=== PATIENT | female | born 1960 | race Caucasian/White ===

== ENCOUNTER 2023-10-29 14:48 | Emergency (ER) | payer OTHER, SELFPAY ==
[2023-10-29 14:52] VITALS: BP 169/93
[2023-10-29 15:02] LABS: Glucose - Point of Care 594 mg/dl (70-99)
--- NOTE | 2023-10-29 15:36 | ED.GENMED ---
History of Present Illness
General
Chief Complaint: Fainting/Passed Out
Source: patient
Exam Limitations: none
Time Seen by Provider: 10/29/23 15:27
Travel History
Have you had any contact with someone who has COVID-19?: No
Do you have any symptoms of coronavirus? Fever > 100 degrees, chills, cough, shortness of breath, sore throat, loss of taste or smell, muscle aches, or headache?: No
History of Present Illness
History of Present Illness:
See MDM
Past History
Past History
ED Past Medical History: Asthma, CAD, COPD, HTN, Hypercholesterolemia, IDDM, [place] (6 months ago) and Other (Colitis, Kidney stones, TIA, right eye retinal issues)
ED Past Surgical History: Cardiac (Stents x 2) and Other (Patient had a paced left time in 2009)
Social History
Tobacco: Former smoker
Alcohol: None
Personal:
Living: with family
Employment: Employed
Family History
Family History: Other (no significant)
Phy Exam
Physical Exam
Physical Exam:
See MDM
Course
Orders/Labs/Results
Orders:
Orders
10/29/23 14:58
CT Head W/o Iv Contrast Urgent
Comment:
Reason For Exam: pain
Cervical Spine wo Contrast CT [CT Cervical Spine W/o Iv Contr] Urgent
Comment:
Reason For Exam: pain
10/29/23 15:35
Electrocardiogram (*1) Urgent
Reason for Study: Syncope
EKG- Treatment ONCE
0.9% Sodium Chloride 1000 ml [Nss] 1,000 ml IV BOLUS
10/29/23 16:42
CMP [Comprehensive Metabolic Panel] Urgent
Complete Blood Count/With Diff Urgent
Abnormal Lab Results
10/29/23 10/29/23
15:01 16:42
Hgb 11.9 L g/dL
(12.0-16.0)
Hct 35.2 L %
(37.0-47.0)
MPV 11.1 H fL
(7.4-10.4)
Sodium 129 L mmol/L
(135-145)
Potassium 5.2 H mmol/L
(3.5-5.1)
Chloride 95 L mmol/L
(98-107)
BUN 22 H mg/dl
(7-17)
Glucose 598 H* mg/dl
(70-99)
POC Glucose 594 H* mg/dl
(70-99)
10/29/23 16:42
10/29/23 16:42
Vital Signs
Initial and Last Documented VS:
Initial Vital Signs
Temp Pulse Resp BP Pulse Ox
98.5 F 101 16 169/93 98
10/29/23 14:52 10/29/23 14:52 10/29/23 14:52 10/29/23 14:52 10/29/23 14:52
Last Documented Vital Signs
Temp Pulse Resp BP Pulse Ox
98.5 F 77 12 125/68 94
10/29/23 14:52 10/29/23 17:15 10/29/23 17:15 10/29/23 17:00 10/29/23 17:15
MDM/Problems Addressed
Differential Diagnosis Includes:
HPI and MDM Narrative:
63-year-old female presenting with syncopal event. Patient has a history of diabetes and she states she was urinating all night last night. Her insulin pump supplies were delayed. She has been giving herself insulin based on fingersticks. She
was walking to her front door to get the package that included her new insulin supplies and she passed out and hit her head. She complains of head and neck pain
On exam, she is dry appearing. Will give IV fluids. Patient's blood sugar found to be elevated. Will obtain basic blood work to rule out any evidence of DKA. Patient states her insulin pump will start to manage her elevated blood sugar by giving
boluses
Physical exam
General: Well appearing and non-toxic
HEENT: protecting airway. Dry mucous membranes
Neck: Mild posterior neck pain. Supple
CV: No evidence of cyanosis. Mild tachycardia
Resp: No accessory muscle use
Abd: Non-distended
Extremities: No deformities
Neuro: alert
Psych: Normal affect
Skin: Intact
Problems Addressed including Acute and Chronic Conditions affecting care:
1. Syncope
Acuity: acute
Prognosis: stable
Details: Likely orthostatic given her hypovolemic state. Will give IV fluids. Will obtain EKG
2. Head and neck
Acuity: acute
Prognosis: stable
Details: Will obtain CT given trauma
3. [Hyperglycemia
Acuity: acute
Prognosis: unstable
Details: patient replaced her insulin pump today
4. [ ]
Acuity: acute
Prognosis: stable
Details:
5. [ ]
Acuity:
Prognosis:
Details:
Updates
6:40 PM after multiple reassessments, patient states she is feeling better. Her insulin pump is now reading blood sugar 351. She feels comfortable going. Discussed increased fluid intake and follow-up with her doctor
Differential Diagnosis (but not limited to): Orthostatic hypotension, neck strain, DKA
Testing considered: Urinalysis
Drug therapy (if applicable): OTC meds, please see d/c instruction regarding Rx drugs
Amount and/or Complexity of Data Reviewed
Clinical info obtained from: Patient
External data reviewed: N/A
Labs I independently reviewed (but not limited to): Fingerstick 594
Radiology: The CT scan was personally and independently reviewed. In addition, official CT report reviewed.
Pulse Ox: not hypoxic
EKG independently reviewed: Sinus rhythm, normal axis, no STEMI
Mate First: N/A
Critical Care: N/A
Risk of Complication:
Social Determinants of health: Good social support
Discussed with other providers: N/A
Escalation of Care includes Admit/Obs: After being observed in the Emergency Department, pt stable for discharge.
Occasional wrong word or 'sound a like' substitutions may have occurred due to the inherent limitations of voice recognition software. Read the chart carefully and recognize, using context, where substitutions have occurred.
*Critical Care Note
Total Time (30-74mins, 75-104mins- exclusive of procedures): Not Applicable
ED Attending Note
-
Portions of this chart may have been created with voice recognition software.� Occasional wrong word or��sound alike� substitutions may have occurred due to the inherent limitations of voice recognition software.
Discharge Plan
Departure
Patient Disposition: Home (Routine Discharge)
Date of Disposition: 10/29/23
Time of Disposition: 18:41
Patient with high blood pressure during this ER visit?: No
Discharge Problem:
Head injury, Hyperglycemia
Instructions: High Blood Sugar, Adult (DC)
Prescriptions:
No Action
cetirizine 10 MG tablet
10 mg PO DAILY
venlafaxine [Effexor XR] 150 MG capsule,extended release 24hr
150 mg PO DAILY
pantoprazole 40 MG tablet,delayed release (DR/EC)
40 mg PO DAILY Qty: 30 2RF
aspirin 81 MG tablet,chewable
81 mg PO DAILY 0RF
rosuvastatin 20 MG tablet
20 mg PO QPM Qty: 30 2RF
losartan 50 MG tablet
50 mg PO DAILY
metoprolol succinate 25 mg Tablet Extended Release 24 Hr
25 mg PO DAILY
ezetimibe [Zetia] 10 mg Tablet
10 mg PO DAILY
albuterol sulfate 90 mcg/actuation Hfa Aerosol Inhaler
2 puff INHALATION QID PRN (Reason: SOB)
Humalog U-100 Insulin 100 unit/mL Cartridge
0 unit SC PRN PRN (Reason: based off glucose level)
Rx Instructions:
Patient has insulin pump
Tylenol
1,000 mg PO Q6HPRN PRN (Reason: Pain)
hydrocodone-acetaminophen 5-325 mg tablet
1 tab PO Q8H PRN (Reason: Pain) Qty: 10 0RF
Referrals:
Carrie Mcgrath DO [Family Provider] -
Activity Restrictions/Additional Instructions:
Please return for any worsening symptoms.
You may return at any time if you have further concerns.
Please drink plenty of water over the next few days.
Please follow up with your doctor at the first available appointment, preferably this week.
Thank you for choosing [facility].
Interventions
Interventions:
*Risk Screen - Suicide Last Done: 10/29/23 14:52
*General Assessment Last Done: 10/29/23 14:52
*Neglect/Abuse Screening Last Done: 10/29/23 14:52
ED- Fall Risk Assessment Last Done: 10/29/23 16:34
*ED COVID-19 Vaccine History Last Done: 10/29/23 14:52
ED- Cardiac Assessment Last Done: 10/29/23 16:35
ED- Neurological Assessment Last Done: 10/29/23 16:35
Discharge Date and Time
Print Language: PANAMANIAN
[2023-10-29 16:32] VITALS: BMI 30.2
[2023-10-29 16:38] VITALS: BP 119/66
[2023-10-29] MEDS: NSS 1000 IV (16:51)
[2023-10-29 16:58] LABS: % Immature Granulocytes 0.4 % (0-0.5); % Lymphocytes 28.2 % (20.5-51.1); % Monocytes 3.9 % (1.7-9.3); % Neutrophils 66.5 % (42.2-75.2); Absolute Basophils 0.1 10^3/uL (0-0.2); Absolute Lymphocytes 2.3 10^3/uL (1.2-3.4); Absolute Monocytes 0.3 10^3/uL (0.1-0.6); Absolute Neutrophils 5.3 10^3/uL (1.4-6.5); Hematocrit 35.2 % (37.0-47.0); Hemoglobin 11.9 g/dL (12.0-16.0); Mean Corp Hgb Conc. 33.8 g/dL (33.0-37.0); Mean Corpuscular Hgb 27.8 pg (27.0-31.0); Mean Corpuscular Volume 82.2 fL (81.0-99.0); Mean Platelet Volume 11.1 fL (7.4-10.4); Nucleated Red Blood Cells % 0 %; Platelet Count 281 10^3/uL (130-400); Red Blood Cell Count 4.28 10^6/uL (4.20-5.40); Red Cell Dist. Width 13.3 % (11.5-14.5)
[2023-10-29 17:00] VITALS: BP 125/68
[2023-10-29 17:12] LABS: ALT (SGPT) 18 U/L (0-35); AST (SGOT) 21 U/L (14-36); Albumin 3.7 g/dl (3.5-5.0); Alkaline Phosphatase 123 U/L (38-126); Blood Urea Nitrogen 22 mg/dl (7-17); Calcium 8.9 mg/dl (8.4-10.2); Carbon Dioxide 27 mmol/L (22-30); Chloride 95 mmol/L (98-107); Estimated Creatinine Clearance 66 ml/min; Glucose 598 mg/dl (70-99); Potassium 5.2 mmol/L (3.5-5.1); Sodium 129 mmol/L (135-145); Total Bilirubin 0.5 mg/dl (0.2-1.3); Total Protein 6.6 g/dl (6.3-8.2); eGFR > 60.00
[2023-10-29 18:00] VITALS: BP 124/59
[2023-10-29 18:51] VITALS: BP 127/68
[2023-10-29 19:02] VITALS: BP 127/68
== END 2023-10-29 19:03 | disposition home or self-care (01) ==
LOC: EMR 14:48
PROVIDERS: Emergency Medicine; EMERGENCY PHYSICIAN Student in an Organized Health Care Education/Training Program; FAMILY PHYSICIAN Student in an Organized Health Care Education/Training Program
DX: R55 Syncope and collapse (principal); E11.65 Type 2 diabetes mellitus with hyperglycemia; S09.90XA Unspecified injury of head, initial encounter; M54.2 Cervicalgia; W18.30XA Fall on same level, unspecified, initial encounter; Y93.01 Activity, walking, marching and hiking; Y92.009 Unspecified place in unspecified non-institutional (private) residence as the place of occurrence of the external cause; I10 Essential (primary) hypertension; E78.00 Pure hypercholesterolemia, unspecified; I25.10 Atherosclerotic heart disease of native coronary artery without angina pectoris; K52.9 Noninfective gastroenteritis and colitis, unspecified; J45.909 Unspecified asthma, uncomplicated; I25.2 Old myocardial infarction; Z96.41 Presence of insulin pump (external) (internal); Z95.5 Presence of coronary angioplasty implant and graft; Z86.73 Personal history of transient ischemic attack (TIA), and cerebral infarction without residual deficits; Z87.891 Personal history of nicotine dependence; Z87.442 Personal history of urinary calculi; Z79.4 Long term (current) use of insulin; Z79.82 Long term (current) use of aspirin; Z88.8 Allergy status to other drugs, medicaments and biological substances; Z91.048 Other nonmedicinal substance allergy status
CPT/HCPCS: 99284; 96360; 70450; 72125; 80053; 82962; 85025; 93005

== ENCOUNTER → 2023-12-18 07:48 | Outpatient (REF) | payer OTHER, SELFPAY | LOC: RAD 07:48 | PROVIDERS: ATTENDING PHYSICIAN Surgery Vascular Surgery; FAMILY PHYSICIAN Student in an Organized Health Care Education/Training Program | DX: I73.9 Peripheral vascular disease, unspecified (principal) | CPT/HCPCS: 93922; 93925 ==

== ENCOUNTER 2024-01-16 10:14 | Emergency (ER) | payer OTHER, SELFPAY ==
[2024-01-16 10:16] VITALS: BP 178/96
--- NOTE | 2024-01-16 10:37 | ED.GENMED ---
History of Present Illness
<Shey Gunn PA-C - Last Filed: 01/16/24 18:43>
General
Chief Complaint: Musculo-Skeletal Complaint
Source: patient
Exam Limitations: none
Time Seen by Provider: 01/16/24 10:36
Nursing documentation reviewed up to this point in time: agreed with
History of Present Illness
History of Present Illness:
Patient is a 63-year-old female presenting to the emergency department for evaluation of atraumatic right ankle pain and swelling. Patient states that she initially noticed pain in her right ankle on Monday afternoon and has been intermittently
icing and elevating since onset. Pain is located in right heel and right medial ankle. Patient does notice redness and warmth of her right ankle, as well. She states that pain was more severe this morning and came to the emergency department for
further evaluation. Patient denies any known inciting injury or fall. Patient denies any fever, chills, nausea/vomiting. No recent bug bites or rashes.
Patient did states she had a fall few weeks ago and saw an orthopedic use noted that she had bone spurs in her heel, tendinitis of her Achilles, and plantar fasciitis.
Past History
<Shey Gunn PA-C - Last Filed: 01/16/24 18:43>
Past History
ED Past Medical History: Asthma, CAD, COPD, HTN, Hypercholesterolemia, IDDM, [place] (6 months ago) and Other (Colitis, Kidney stones, TIA, right eye retinal issues)
ED Past Surgical History: Cardiac (Stents x 2) and Other (Patient had a paced left time in 2009)
Social History
Tobacco: Former smoker
Alcohol: None
Personal:
Living: with family
Employment: Employed
Family History
Family History: Other (no significant)
Review of Systems
<Shey Gunn PA-C - Last Filed: 01/16/24 18:43>
Review of Systems
Allergies reviewed?: Yes
All Other Systems: ROS reviewed and negative except as documented in HPI and ROS
Phy Exam
<Shey Gunn PA-C - Last Filed: 01/16/24 18:43>
Physical Exam
Physical Exam:
Vitals: Hypertensive, otherwise vital signs stable. Afebrile
General: Patient is well appearing, no acute distress. Nontoxic-appearing
Skin: Warm and dry, no rashes or lesions
Head: Normocephalic, atraumatic
Eyes: Sclera nonicteric. EOMs intact. No nystagmus.
Throat: Protecting airway
Neck: Normal ROM, no cervical spine tenderness, no meningismus
Cardiac: Regular rate and rhythm, no murmurs.
Pulm: Normal respiratory effort, no wheezes, rales, rhonchi heard on exam.
Abdomen: No abdominal tenderness.
Extremities: Mild diffuse edema of right ankle with point tenderness to insertion of right Achilles tendon. Negative Loza test. Achilles intact. Some tenderness noted to both right calcaneus and right plantar foot. No overlying erythema or
warmth of right ankle. No red streaking or signs of cellulitis. No bony tenderness of right ankle or right foot.
Neuro: AAOx3. CN II-XII intact. No focal neurologic deficits.
Psychiatric: Normal affect.
Course
<Shey Gunn PA-C - Last Filed: 01/16/24 18:43>
Orders/Labs/Results
Orders:
Orders
01/16/24 10:22
CR Ankle - Right Min 3 Views * Urgent
Comment:
Reason For Exam: pain and swelling
01/16/24 10:56
Acetaminophen [Tylenol] 650 mg PO NOW STA
01/16/24 11:47
Ortho Boot Right- Treatment ONCE
Short or tall?: Short
Vital Signs
Initial and Last Documented VS:
Initial Vital Signs
Temp Pulse Resp BP Pulse Ox
98.6 F 105 18 178/96 96
01/16/24 10:16 01/16/24 10:16 01/16/24 10:16 01/16/24 10:16 01/16/24 10:16
Last Documented Vital Signs
Temp Pulse Resp BP Pulse Ox
98.6 F 105 18 178/96 96
01/16/24 10:16 01/16/24 10:16 01/16/24 10:16 01/16/24 10:16 01/16/24 10:16
<Gunner Elder DO - Last Filed: 01/16/24 11:50>
Orders/Labs/Results
Orders:
Orders
01/16/24 10:22
CR Ankle - Right Min 3 Views * Urgent
Comment:
Reason For Exam: pain and swelling
01/16/24 10:56
Acetaminophen [Tylenol] 650 mg PO NOW STA
01/16/24 11:47
Ortho Boot Right- Treatment ONCE
Short or tall?: Short
Vital Signs
Initial and Last Documented VS:
Initial Vital Signs
Temp Pulse Resp BP Pulse Ox
98.6 F 105 18 178/96 96
01/16/24 10:16 01/16/24 10:16 01/16/24 10:16 01/16/24 10:16 01/16/24 10:16
Last Documented Vital Signs
Temp Pulse Resp BP Pulse Ox
98.6 F 105 18 178/96 96
01/16/24 10:16 01/16/24 10:16 01/16/24 10:16 01/16/24 10:16 01/16/24 10:16
<Shey Gunn PA-C - Last Filed: 01/16/24 18:43>
MDM/Problems Addressed
Differential Diagnosis Includes:
Not limited to: Ankle sprain, ankle fracture, tendinitis, bursitis, plantar fasciitis, Achilles tendon rupture
MDM/Problems Addressed:
Patient is a 63-year-old female presenting with atraumatic right ankle pain and swelling. No fever, chills, rashes. No known trauma. Patient is stable vital signs, she is afebrile. Physical exam as above. Patient is well-appearing,
nontoxic-appearing. She does have diffuse edema of the right ankle localized more to the medial aspect and calcaneus. Tenderness to right calcaneus near insertion of Achilles. There is no overlying erythema or warmth of right ankle. No red
streaking or indications of infection. Patient has acceptable range of motion right ankle. X-ray obtained in triage show bone spurs to the calcaneus and findings consistent with Achilles enthesopathy.
Do not suspect infectious process. Suspect symptoms related to Achilles tendinitis and possible plantar fasciitis. Will give Tylenol and ice in ER. Will place in Ortho boot and have patient follow-up with orthopedic, Dr. Sargent . Will send a few
tablets of tramadol to use as needed for severe pain. Discussed may cause drowsiness. Recommended ice, elevation. Patient has cane at home to use. Patient comfortable with plan.
Chronic conditions affecting care:
Hypertension
Acute Exacerbation and/or Progression of Chronic Illness:
Acutely hypertensive
<Shey Gunn PA-C - Last Filed: 01/16/24 18:43>
*Radiology
Radiology exam reviewed: preliminary read by ED provider and radiology read reviewed
*Pulse Oximetry
Patient hypoxic: no
*EKG
Interpreted by ED Provider?: NA
*Meat Boner Interpretation
Rate: Meat Boner- N/A
*Critical Care Note
Total Time (30-74mins, 75-104mins- exclusive of procedures): Not Applicable
ED Attending Note
<Shey Gunn PA-C - Last Filed: 01/16/24 18:43>
-
Portions of this chart may have been created with voice recognition software.� Occasional wrong word or��sound alike� substitutions may have occurred due to the inherent limitations of voice recognition software.
<Gunner Elder, DO - Last Filed: 01/16/24 11:50>
ED Attending Note
Patient seen and examined by attending physician: Yes
I performed a history and physical exam of patient and discussed management with resident, I reviewed resident's note and agree with documented findings and plan of care.: Yes
ED Attending Note:
I have reviewed and agree with history and treatment plan by Shey Gunn. My exam revealed right calcaneal tenderness. Normal pulses. Suspect Achilles tendinitis. Do not suspect infection. Treat with walker boot, follow-up with orthopedics.
Patient has seen orthopedics for this in the past.
Discharge Plan
Departure
Patient Disposition: Home (Routine Discharge)
Date of Disposition: 01/16/24
Time of Disposition: 11:48
Patient with high blood pressure during this ER visit?: Yes
Condition: Good
Covid-19: Not Applicable
Discharge Problem:
Tendonitis, Achilles, right, Plantar fasciitis, right
Instructions: Plantar fasciitis, Achilles Tendinopathy (DC), BLOOD PRESSURE
Prescriptions:
New
tramadol 50 mg tablet
50 mg PO Q6H PRN (Reason: Pain) Qty: 12 0RF
No Action
cetirizine 10 MG tablet
10 mg PO DAILY
venlafaxine [Effexor XR] 150 MG capsule,extended release 24hr
150 mg PO DAILY
pantoprazole 40 MG tablet,delayed release (DR/EC)
40 mg PO DAILY Qty: 30 2RF
aspirin 81 MG tablet,chewable
81 mg PO DAILY 0RF
rosuvastatin 20 MG tablet
20 mg PO QPM Qty: 30 2RF
losartan 50 MG tablet
50 mg PO DAILY
metoprolol succinate 25 mg Tablet Extended Release 24 Hr
25 mg PO DAILY
ezetimibe [Zetia] 10 mg Tablet
10 mg PO DAILY
albuterol sulfate 90 mcg/actuation Hfa Aerosol Inhaler
2 puff INHALATION QID PRN (Reason: SOB)
Humalog U-100 Insulin 100 unit/mL Cartridge
0 unit SC PRN PRN (Reason: based off glucose level)
Rx Instructions:
Patient has insulin pump
Tylenol
1,000 mg PO Q6HPRN PRN (Reason: Pain)
hydrocodone-acetaminophen 5-325 mg tablet
1 tab PO Q8H PRN (Reason: Pain) Qty: 10 0RF
Referrals:
Jose Disla, [Family Provider] -
Activity Restrictions/Additional Instructions:
RETURN TO THE EMERGENCY DEPARTMENT WITH ANY FEVERS, CHILLS, INTRACTABLE PAIN, WORSENING IN CURRENT SYMPTOMS, OR ANY OTHER CONCERNS
-It is likely that your symptoms are due to a tendinitis of your Achilles and possible plantar fasciitis. You should keep your right ankle elevated, apply ice. You can take Tylenol as needed for pain you can take tramadol every 6 hours as needed
for severe discomfort. This may cause drowsiness. You should not take prior to driving. Wear Ortho boot until you follow-up with orthopedics
-As discussed�you need to follow-up with orthopedics, Dr. Sargent for further evaluation/management. You may require further imaging.
Interventions
Interventions:
*Risk Screen - Suicide Last Done: 01/16/24 10:16
*Neglect/Abuse Screening Last Done: 01/16/24 10:16
ED- Fall Risk Assessment Last Done: 01/16/24 11:05
*ED COVID-19 Vaccine History Last Done: 01/16/24 10:16
*Nursing Disposition Last Done: 01/16/24 12:03
ED-Musculoskeletal Assessment Last Done: 01/16/24 11:05
Discharge Date and Time
Discharge Date/Time: 01/16/24 12:03
Print Language: PORTUGUESE
[2024-01-16 11:00] VITALS: BMI 35.5
[2024-01-16] MEDS: TYLENOL 650 MG PO (11:11)
== END 2024-01-16 12:03 | disposition home or self-care (01) ==
LOC: EMR 10:14
PROVIDERS: EMERGENCY PHYSICIAN Emergency Medicine; FAMILY PHYSICIAN Family Medicine
DX: M72.2 Plantar fascial fibromatosis (principal); M76.61 Achilles tendinitis, right leg; M25.571 Pain in right ankle and joints of right foot; R60.0 Localized edema; R26.2 Difficulty in walking, not elsewhere classified; M77.9 Enthesopathy, unspecified; I10 Essential (primary) hypertension; E11.9 Type 2 diabetes mellitus without complications; I25.10 Atherosclerotic heart disease of native coronary artery without angina pectoris; J45.909 Unspecified asthma, uncomplicated; E78.00 Pure hypercholesterolemia, unspecified; M10.9 Gout, unspecified; K52.9 Noninfective gastroenteritis and colitis, unspecified; I25.2 Old myocardial infarction; Z79.82 Long term (current) use of aspirin; Z79.4 Long term (current) use of insulin; Z95.5 Presence of coronary angioplasty implant and graft; Z96.41 Presence of insulin pump (external) (internal); Z85.828 Personal history of other malignant neoplasm of skin; Z87.442 Personal history of urinary calculi; Z87.891 Personal history of nicotine dependence; Z86.73 Personal history of transient ischemic attack (TIA), and cerebral infarction without residual deficits; Z88.8 Allergy status to other drugs, medicaments and biological substances; Z91.048 Other nonmedicinal substance allergy status
CPT/HCPCS: 99283; 29515; 73610

== ENCOUNTER 2024-01-24 11:41 | Emergency (ER) | payer OTHER, SELFPAY ==
[2024-01-24 11:44] VITALS: BP 129/82
--- NOTE | 2024-01-24 13:00 | ED.GENMED ---
History of Present Illness
General
Chief Complaint: Musculo-Skeletal Complaint
Source: patient
Exam Limitations: none
Time Seen by Provider: 01/24/24 12:41
Nursing documentation reviewed up to this point in time: agreed with
History of Present Illness
History of Present Illness:
63-year-old female with a past medical history of asthma, hypertension, hyperlipidemia, CAD, diabetes who presents to the emergency room for evaluation primarily of ankle pain but she is also complaining of chest pain and arm heaviness, shortness of
breath. Regarding her ankle issue: Patient was seen in this emergency room 01/16/2024 for evaluation of right ankle pain and swelling; there was no initial trauma and she was diagnosed with Achilles tendinitis/plantar fasciitis. She was placed in
orthopedic boot and referred to orthopedics as an outpatient. Patient reports that last night at around 9 PM she took the boot off to go to bed but had to go outside to help her neighbor with something and did not put the boot back on. She says
that she unfortunately was having pain walking without the boot and suffered an inversion injury of the right ankle while she was walking. She says that she had immediate worsening of her pain mainly in the medial ankle. She came back to the
emergency room to be assessed. She does note that she has been having some chest pain today�she says that this morning pain was worse and she started to have some pressure in her chest and some heaviness in her left arm. She says she started to
have some mild dizziness. She says that she is not sure whether this could be anxiety or pain related but she also was hoping to be evaluated for this. She says symptoms are relatively mild. She does have a known history of coronary artery
disease and stents.
Past History
Past History
ED Past Medical History: Asthma, CAD, COPD, HTN, Hypercholesterolemia, IDDM, [place] (6 months ago) and Other (Colitis, Kidney stones, TIA, right eye retinal issues)
ED Past Surgical History: Cardiac (Stents x 2) and Other (Patient had a paced left time in 2009)
Social History
Tobacco: Former smoker
Alcohol: None
Personal:
Living: with family
Employment: Employed
Family History
Family History: Other (no significant)
Review of Systems
Review of Systems
All Other Systems: ROS reviewed and negative except as documented in HPI and ROS
Constitutional: Denies fever or chills
Respiratory: Denies cough or trouble breathing
Cardiac: Reports chest pain
ABD/GI: Denies abdominal pain, nausea or vomiting
: Denies flank pain
Musculoskeletal: Reports joint pain and edema; Denies neck pain or back pain
Neurological: Denies dizzy or headache
Phy Exam
Physical Exam
Physical Exam:
General: Awake, alert, oriented x3; anxious but no acute distress
Head: Normocephalic, atraumatic
Eyes: Conjunctiva normal
Throat: Airway intact, handling secretions
Neck: Trachea midline, supple without meningismus
Lungs: Clear to auscultation bilaterally, no wheezing, rales, rhonchi
Heart: Regular rate and rhythm, no murmurs, gallops, or rubs
Neuro: Cranial nerves grossly intact, speech fluid, no motor or sensory deficit
Skin: no rash, no erythema or warmth of the skin in the legs
Extremities: Patient has swelling around the entire to the right ankle somewhat worse on the lateral aspect near the lateral malleolus and anterior to the lateral malleolus; she has tenderness along the lateral malleolus on the right as well as some
tenderness along the Achilles tendon but no tenderness of the medial malleolus or the midfoot or along the fifth metatarsal; her tenderness extends up to the posterior calf to about the midpoint of the calf and she has edema extending to the lower
part of the calf on the right; she has no tenderness of the upper calf, no tenderness of the knee and good range of motion of the knee; range of motion and ankle limited by pain; she does have a good palpable right DP pulse; rest of extremities are
atraumatic
Scores
Heart Failure Risk
Heart Failure Risk Score: Not Applicable
Heart Score for Chest Pain Patients
STEMI patient?: Not applicable
Withdrawal Assessment of Alcohol
Withdrawal Assessment Completed?: Not applicable
Course
Orders/Labs/Results
Orders:
Orders
01/24/24 11:46
Ankle, Right 3 view CR [CR Ankle - Right Min 3 Views *] Urgent
Comment:
Reason For Exam: pain, increased swelling
01/24/24 12:53
Electrocardiogram (*1) Urgent
Reason for Study: Vertigo / Dizzy
EKG- Treatment ONCE
CR Leg Tibia/fibula Right 2 Vw Urgent
Comment:
Reason For Exam: right lower leg pain s/p ankle inversion injury
01/24/24 12:56
Ketorolac [Toradol] 15 mg IV NOW STA
01/24/24 13:22
US Periph Venous LOWER Ext RT Urgent
Comment:
Reason For Exam: RLE pain and swelling
01/24/24 13:36
Complete Blood Count/With Diff Urgent
Comprehensive Metabolic Panel Urgent
Troponin I Urgent
01/24/24 15:37
0.9% Sodium Chloride 500 ml [Nss] 500 ml IV BOLUS
Abnormal Lab Results
01/24/24
13:36
WBC 12.4 H 10^3/uL
(4.8-10.8)
Hgb 11.8 L g/dL
(12.0-16.0)
Hct 35.5 L %
(37.0-47.0)
MPV 10.5 H fL
(7.4-10.4)
Absolute Neuts (auto) 8.3 H 10^3/uL
(1.4-6.5)
Absolute Lymphs (auto) 3.5 H 10^3/uL
(1.2-3.4)
BUN 20 H mg/dl
(7-17)
Creatinine 1.1 H mg/dL
(0.6-1.0)
Glucose 235 H mg/dl
(70-99)
01/24/24 13:36
01/24/24 13:36
Vital Signs
Initial and Last Documented VS:
Initial Vital Signs
Temp Pulse Resp BP Pulse Ox
37.1 C 109 20 129/82 96
01/24/24 11:44 01/24/24 11:44 01/24/24 11:44 01/24/24 11:44 01/24/24 11:44
Last Documented Vital Signs
Temp Pulse Resp BP Pulse Ox
36.7 C 77 20 125/68 98
01/24/24 15:29 01/24/24 15:29 01/24/24 11:44 01/24/24 15:29 01/24/24 15:29
MDM/Problems Addressed
Differential Diagnosis Includes:
Ankle pain: Ankle sprain, ankle fracture, DVT
Chest pain: ACS, dysrhythmia, anxiety; PE is a consideration but considered much less likely
MDM/Problems Addressed:
63-year-old female with history as documented presents for evaluation of ankle pain; she has also been having some chest pain and dizziness this morning which is relatively mild but she thinks could be related to anxiety. Her vital signs are
significant for some tachycardia but otherwise unremarkable. Physical exam as above. Regarding ankle pain: At least ostensibly her ankle pain seems to be traumatic likely ankle sprain�she had a clear inversion mechanism of injury and she says that
she heard a crack. Prior to this however she was having atraumatic pain and swelling in the ankle. Her exam today certainly does show tenderness and swelling along the lateral malleolus of the right ankle but swelling and tenderness extends
relatively far up calf on the right. Will certainly check an x-ray of the right ankle but will also send for a tib-fib x-ray and I think she should be ruled out for DVT. Will treat pain with Toradol. Regarding her chest pain�it seems of started
this morning in the setting of intense pain in the ankle. Low suspicion for emergent pathology based on her description of the symptoms but she does have extensive history including stents. Will check labs including a troponin and EKG to start.
Will reassess after the above.
Labs reviewed: CBC shows marginal leukocytosis likely reactive low suspicion for infection. CMP shows creatinine 1.1 which is essentially stable. Random glucose 235�provide some IV fluids and encourage p.o. fluids, patient has insulin pump and
monitoring sugar closely. She says that her monitor ran out of batteries which caused a spike today but she did replace it. Chest pain is completely resolved I suspect that there may have been some element of anxiety she was quite concerned about
her leg. Reviewed x-ray of the ankle and hip/fib�suspect likely minor chip fracture. DVT study was negative. Will plan to place an boot, provide crutches, referral to orthopedics. She is comfortable with this plan. Spoke about return
precautions and all questions answered.
Chronic conditions affecting care:
CAD
*Radiology
Radiology exam reviewed: preliminary read by ED provider and radiology read reviewed
*Pulse Oximetry
Patient hypoxic: no
*Critical Care Note
Total Time (30-74mins, 75-104mins- exclusive of procedures): Not Applicable
Data Reviewed
Review of Other/Old Records Reveals: Records
Source: patient and records
ED Attending Note
-
Portions of this chart may have been created with voice recognition software.� Occasional wrong word or��sound alike� substitutions may have occurred due to the inherent limitations of voice recognition software.
Discharge Plan
Departure
Patient Disposition: Home (Routine Discharge)
Date of Disposition: 01/24/24
Time of Disposition: 16:00
Patient with high blood pressure during this ER visit?: No
Discharge Problem:
Ankle fracture, right, Chest pain
Instructions: Ankle Fracture (DC), Chest Pain PCP Follow Up
Prescriptions:
No Action
cetirizine 10 MG tablet
10 mg PO DAILY
venlafaxine [Effexor XR] 150 MG capsule,extended release 24hr
150 mg PO DAILY
pantoprazole 40 MG tablet,delayed release (DR/EC)
40 mg PO DAILY Qty: 30 2RF
aspirin 81 MG tablet,chewable
81 mg PO DAILY 0RF
rosuvastatin 20 MG tablet
20 mg PO QPM Qty: 30 2RF
losartan 50 MG tablet
50 mg PO DAILY
metoprolol succinate 25 mg Tablet Extended Release 24 Hr
25 mg PO DAILY
ezetimibe [Zetia] 10 mg Tablet
10 mg PO DAILY
albuterol sulfate 90 mcg/actuation Hfa Aerosol Inhaler
2 puff INHALATION QID PRN (Reason: SOB)
Humalog U-100 Insulin 100 unit/mL Cartridge
0 unit SC PRN PRN (Reason: based off glucose level)
Rx Instructions:
Patient has insulin pump
Tylenol
1,000 mg PO Q6HPRN PRN (Reason: Pain)
hydrocodone-acetaminophen 5-325 mg tablet
1 tab PO Q8H PRN (Reason: Pain) Qty: 10 0RF
tramadol 50 mg tablet
50 mg PO Q6H PRN (Reason: Pain) Qty: 12 0RF
Referrals:
Carrie Mcgrath DO [Family Provider] - Follow up in 5-7 days
Mark Manzano MD [Active] - Call in 1-3 days for appt
Activity Restrictions/Additional Instructions:
Thank you for visiting the Emergency Department at [facility].
1. Please schedule a follow up appointment as directed. Call first thing tomorrow morning to make an appointment.
2. If indicated, please take your medications as instructed and indicated on discharge paperwork.
3. If any of your symptoms do not improve, or persist, or become more severe within 6-12 hours, please return to the emergency department for further care.
4. Please return to the emergency department if you develop a headache, neck pain/stiffness, fever greater than 100.4F, chest pain, shortness of breath, persistent nausea, vomiting, slurred speech, difficulty walking, numbness/tingling, weakness,
signs of infection or any other symptoms that are worrisome to you.
Please call [phone] if you have any questions.
Interventions
Interventions:
*Risk Screen - Suicide Last Done: 01/24/24 14:26
*General Assessment Last Done: 01/24/24 12:11
*Neglect/Abuse Screening Last Done: 01/24/24 14:26
ED- Fall Risk Assessment Last Done: 01/24/24 12:11
*ED COVID-19 Vaccine History Last Done: 01/24/24 14:26
ED-Musculoskeletal Assessment Last Done: 01/24/24 12:10
Discharge Date and Time
Print Language: GHANAIAN
[2024-01-24] MEDS: TORADOL 15 MG IV (13:37)
[2024-01-24 13:55] LABS: % Basophils 0.6 % (0-2); % Immature Granulocytes 0.3 % (0-0.5); % Lymphocytes 27.9 % (20.5-51.1); % Monocytes 4.4 % (1.7-9.3); % Neutrophils 66.8 % (42.2-75.2); Absolute Basophils 0.1 10^3/uL (0-0.2); Absolute Lymphocytes 3.5 10^3/uL (1.2-3.4); Absolute Monocytes 0.6 10^3/uL (0.1-0.6); Absolute Neutrophils 8.3 10^3/uL (1.4-6.5); Hematocrit 35.5 % (37.0-47.0); Hemoglobin 11.8 g/dL (12.0-16.0); Mean Corp Hgb Conc. 33.2 g/dL (33.0-37.0); Mean Corpuscular Hgb 27.1 pg (27.0-31.0); Mean Corpuscular Volume 81.4 fL (81.0-99.0); Mean Platelet Volume 10.5 fL (7.4-10.4); Nucleated Red Blood Cells % 0 %; Platelet Count 367 10^3/uL (130-400); Red Blood Cell Count 4.36 10^6/uL (4.20-5.40); White Blood Cell Count 12.4 10^3/uL (4.8-10.8)
[2024-01-24 14:10] LABS: ALT (SGPT) 18 U/L (0-35); AST (SGOT) 29 U/L (14-36); Albumin 3.9 g/dl (3.5-5.0); Alkaline Phosphatase 117 U/L (38-126); Blood Urea Nitrogen 20 mg/dl (7-17); Calcium 8.9 mg/dl (8.4-10.2); Carbon Dioxide 26 mmol/L (22-30); Chloride 99 mmol/L (98-107); Glucose 235 mg/dl (70-99); Potassium 4.7 mmol/L (3.5-5.1); Sodium 135 mmol/L (135-145); Total Bilirubin 0.4 mg/dl (0.2-1.3); Total Protein 6.8 g/dl (6.3-8.2); eGFR 56.11
[2024-01-24 14:22] LABS: Troponin I < 0.012 ng/ml
[2024-01-24 15:29] VITALS: BP 125/68
[2024-01-24] MEDS: NSS 500 IV (15:37)
== END 2024-01-24 16:31 | disposition home or self-care (01) ==
LOC: EMR 11:41
PROVIDERS: EMERGENCY PHYSICIAN Emergency Medicine; FAMILY PHYSICIAN Student in an Organized Health Care Education/Training Program
DX: S82.891A Other fracture of right lower leg, initial encounter for closed fracture (principal); X50.1XXA Overexertion from prolonged static or awkward postures, initial encounter; R07.89 Other chest pain; I25.10 Atherosclerotic heart disease of native coronary artery without angina pectoris; I10 Essential (primary) hypertension; E78.00 Pure hypercholesterolemia, unspecified; E11.9 Type 2 diabetes mellitus without complications; Z87.891 Personal history of nicotine dependence
CPT/HCPCS: 99285; 96374; 96361; 73590; 73610; 80053; 84484; 85025; 93005; 93971

== ENCOUNTER 2024-07-15 08:38 | Emergency (ER) | payer MEDICARE, SELFPAY ==
[2024-07-15 08:46] VITALS: BP 147/96
[2024-07-15 10:42] VITALS: BMI 36.4
[2024-07-15] MEDS: NSS 500 IV (10:55)
[2024-07-15] MEDS: REGLAN 10 MG IV (10:55)
[2024-07-15] MEDS: BENADRYL 12.5 MG IV (10:55)
[2024-07-15 11:19] LABS: % Basophils 0.7 % (0-2); % Immature Granulocytes 0.4 % (0-0.5); % Lymphocytes 23.2 % (20.5-51.1); % Monocytes 5.1 % (1.7-9.3); % Neutrophils 70.6 % (42.2-75.2); Absolute Basophils 0.1 10^3/uL (0-0.2); Absolute Lymphocytes 2.5 10^3/uL (1.2-3.4); Absolute Monocytes 0.6 10^3/uL (0.1-0.6); Absolute Neutrophils 7.6 10^3/uL (1.4-6.5); Hematocrit 36.8 % (37.0-47.0); Hemoglobin 11.9 g/dL (12.0-16.0); Mean Corp Hgb Conc. 32.3 g/dL (33.0-37.0); Mean Corpuscular Hgb 27.2 pg (27.0-31.0); Mean Platelet Volume 10.5 fL (7.4-10.4); Nucleated Red Blood Cells % 0 %; Platelet Count 341 10^3/uL (130-400); Red Blood Cell Count 4.38 10^6/uL (4.20-5.40); Red Cell Dist. Width 13.7 % (11.5-14.5); White Blood Cell Count 10.8 10^3/uL (4.8-10.8)
[2024-07-15 11:32] LABS: ALT (SGPT) 21 U/L (0-35); AST (SGOT) 27 U/L (14-36); Alkaline Phosphatase 111 U/L (38-126); Blood Urea Nitrogen 24 mg/dl (7-17); Calcium 9.1 mg/dl (8.4-10.2); Carbon Dioxide 27 mmol/L (22-30); Chloride 102 mmol/L (98-107); Estimated Creatinine Clearance 79 ml/min; Glucose 161 mg/dl (70-99); Magnesium 1.7 mg/dl (1.6-2.3); Potassium 4.6 mmol/L (3.5-5.1); Sodium 137 mmol/L (135-145); Total Bilirubin 0.2 mg/dl (0.2-1.3); eGFR > 60.00
[2024-07-15 11:40] VITALS: BP 131/71
[2024-07-15 11:43] LABS: Troponin I < 0.012 ng/ml
[2024-07-15 12:00] VITALS: BP 147/81
[2024-07-15 12:03] LABS: TSH 3.09 uIU/ml (0.47-4.68)
[2024-07-15 12:33] LABS: Glucose - Point of Care 68 mg/dl (70-99)
[2024-07-15 13:00] VITALS: BP 153/64
[2024-07-15 14:00] VITALS: BP 150/89
--- NOTE | 2024-07-15 14:05 | ED.GENMED ---
History of Present Illness
General
Chief Complaint: Chest Pain
Source: patient
Exam Limitations: none
Time Seen by Provider: 07/15/24 10:13
Nursing documentation reviewed up to this point in time: agreed with
History of Present Illness
History of Present Illness:
64-year-old female with past ministry of CAD hypertension hyperlipidemia, diabetes presenting to the emergency department today with concerns of chest discomfort with some radiation to her neck and jaw also has had a mild headache since yesterday
worsening today. Denies any fevers nausea vomiting recent illness.
Past History
Past History
ED Past Medical History: Asthma, CAD, COPD, HTN, Hypercholesterolemia, IDDM, [place] (6 months ago) and Other (Colitis, Kidney stones, TIA, right eye retinal issues)
ED Past Surgical History: Cardiac (Stents x 2) and Other (Patient had a paced left time in 2009)
Social History
Tobacco: Former smoker
Alcohol: None
Personal:
Living: with family
Employment: Employed
Family History
Family History: Other (no significant)
Review of Systems
Review of Systems
Allergies reviewed?: Yes
All Other Systems: ROS reviewed and negative except as documented in HPI and ROS
Phy Exam
Physical Exam
Physical Exam:
GENERAL: Alert , in no apparent distress
EYE: pupils equal and reactive
NECK: Supple, no significant adenopathy.
ENT: o/p clr, mmm.
CARDIAC: Regular rate and rhythm .
LUNGS: Clear breath sounds bilaterally, no acute respiratory distress, no wheezes/rales/rhonchi
ABDOMEN: Soft, without focal tenderness, no r/g, no cvat
NEUROLOGICAL: Alert and oriented, no focal neuro deficits
SKIN: Warm and dry, skin intact.
MUSCULOSKELETAL: No edema, well perfused.
PSYCH: Normal and appropriate interaction.
Scores
Heart Score for Chest Pain Patients
STEMI patient?: No
History: Slightly or Non-Suspicious
ECG: Normal
Age: >/= 65 years
Risk Factors: >/= 3 Risk Factors or History of CAD
Troponin: </= Normal Limit
Heart Score for Chest Pain Patients: 4
Heart Score Risk: 20.3% MACE over next 6 weeks
Course
Orders/Labs/Results
Orders:
Orders
07/15/24 08:49
Electrocardiogram (*1) Urgent
Reason for Study: Chest Pain
EKG- Treatment ONCE
07/15/24 10:39
CT Head W/o Iv Contrast Urgent
Comment:
Reason For Exam: headache, no hx of
Cardiac Monitoring- Treatment ONCE
07/15/24 10:40
0.9% Sodium Chloride 500 ml [Nss] 500 ml IV BOLUS
Diphenhydramine [Benadryl] 12.5 mg IV NOW STA
Metoclopramide [Reglan] 10 mg IV NOW STA
CR Chest - 2 Views Urgent
Comment:
Reason For Exam: cp
07/15/24 10:58
Complete Blood Count/With Diff Urgent
Comprehensive Metabolic Panel Urgent
Magnesium Urgent
TSH Urgent
Troponin I Urgent
07/15/24 14:09
Ketorolac [Toradol] 30 mg IV NOW STA
Abnormal Lab Results
07/15/24 07/15/24
10:58 12:31
Hgb 11.9 L g/dL
(12.0-16.0)
Hct 36.8 L %
(37.0-47.0)
MCHC 32.3 L g/dL
(33.0-37.0)
MPV 10.5 H fL
(7.4-10.4)
Absolute Neuts (auto) 7.6 H 10^3/uL
(1.4-6.5)
BUN 24 H mg/dl
(7-17)
Glucose 161 H mg/dl
(70-99)
POC Glucose 68 L mg/dl
(70-99)
07/15/24 10:58
07/15/24 10:58
Vital Signs
Initial and Last Documented VS:
Initial Vital Signs
Temp Pulse Resp BP Pulse Ox
98.5 F 95 18 147/96 97
07/15/24 08:46 07/15/24 08:46 07/15/24 08:46 07/15/24 08:46 07/15/24 08:46
Last Documented Vital Signs
Temp Pulse Resp BP Pulse Ox
98.5 F 89 18 153/64 94
07/15/24 08:46 07/15/24 13:15 07/15/24 12:45 07/15/24 13:00 07/15/24 13:15
MDM/Problems Addressed
MDM/Problems Addressed:
64-year-old female presenting to the emergency department with chest neck and jaw discomfort since yesterday also headache maximal discomfort mainly with movement of the neck. Denies any specific inciting event or injuries. On arrival vital signs
are normal EKG nonischemic troponin negative labs unremarkable. Was given Reglan with some improvement of the headache was also given Toradol with ongoing improvement. No evidence of any life-threatening pathology causing symptoms at this time.
Patient advised for close outpatient follow-up. Return precautions given.
*Critical Care Note
Total Time (30-74mins, 75-104mins- exclusive of procedures): Not Applicable
ED Attending Note
-
Portions of this chart may have been created with voice recognition software.� Occasional wrong word or��sound alike� substitutions may have occurred due to the inherent limitations of voice recognition software.
Discharge Plan
Departure
Patient Disposition: Home (Routine Discharge)
Date of Disposition: 07/15/24
Time of Disposition: 15:11
Patient with high blood pressure during this ER visit?: No
Condition: Good
Covid-19: Not Applicable
Discharge Problem:
Chest pain, Neck pain
Instructions: Chest Pain DCA Follow Up, Chest Pain PCP Follow Up
Prescriptions:
No Action
cetirizine 10 MG tablet
10 mg PO DAILY
venlafaxine [Effexor XR] 150 MG capsule,extended release 24hr
150 mg PO DAILY
pantoprazole 40 MG tablet,delayed release (DR/EC)
40 mg PO DAILY Qty: 30 2RF
aspirin 81 MG tablet,chewable
81 mg PO DAILY 0RF
rosuvastatin 20 MG tablet
20 mg PO QPM Qty: 30 2RF
losartan 50 MG tablet
50 mg PO DAILY
metoprolol succinate 25 mg Tablet Extended Release 24 Hr
25 mg PO DAILY
ezetimibe [Zetia] 10 mg Tablet
10 mg PO DAILY
albuterol sulfate 90 mcg/actuation Hfa Aerosol Inhaler
2 puff INHALATION QID PRN (Reason: SOB)
Humalog U-100 Insulin 100 unit/mL Cartridge
0 unit SC PRN PRN (Reason: based off glucose level)
Rx Instructions:
Patient has insulin pump
Tylenol
1,000 mg PO Q6HPRN PRN (Reason: Pain)
hydrocodone-acetaminophen 5-325 mg tablet
1 tab PO Q8H PRN (Reason: Pain) Qty: 10 0RF
tramadol 50 mg tablet
50 mg PO Q6H PRN (Reason: Pain) Qty: 12 0RF
Referrals:
UNKNOWN - PT DOES,NOT KNOW [Family Provider] -
Activity Restrictions/Additional Instructions:
You came to the emergency department today with concerns of multiple symptoms. Here your reassuring assessment. Please feel closely with the primary care doctor and cardiology. Return to the emergency department for any worsening, new or
concerning symptoms.
Interventions
Interventions:
*Risk Screen - Suicide Last Done: 07/15/24 08:46
*General Assessment Last Done: 07/15/24 08:46
*Neglect/Abuse Screening Last Done: 07/15/24 08:46
*ED COVID-19 Vaccine History Last Done: 07/15/24 11:36
ED- Cardiac Assessment Last Done: 07/15/24 11:05
Discharge Date and Time
Print Language: CHADIAN
[2024-07-15] MEDS: TORADOL 30 MG IV (14:14)
[2024-07-15 15:00] VITALS: BP 130/57
== END 2024-07-15 15:51 | disposition home or self-care (01) ==
LOC: EMR 08:38
PROVIDERS: Physician Assistant; EMERGENCY PHYSICIAN Emergency Medicine
DX: R07.89 Other chest pain (principal); M54.2 Cervicalgia; R51.9 Headache, unspecified; R68.84 Jaw pain; I25.10 Atherosclerotic heart disease of native coronary artery without angina pectoris; I10 Essential (primary) hypertension; E78.00 Pure hypercholesterolemia, unspecified; E11.9 Type 2 diabetes mellitus without complications; K52.9 Noninfective gastroenteritis and colitis, unspecified; J44.9 Chronic obstructive pulmonary disease, unspecified; I25.2 Old myocardial infarction; Z79.4 Long term (current) use of insulin; Z79.82 Long term (current) use of aspirin; Z86.73 Personal history of transient ischemic attack (TIA), and cerebral infarction without residual deficits; Z87.442 Personal history of urinary calculi; Z85.828 Personal history of other malignant neoplasm of skin; Z87.891 Personal history of nicotine dependence; Z95.5 Presence of coronary angioplasty implant and graft; Z88.8 Allergy status to other drugs, medicaments and biological substances; Z91.048 Other nonmedicinal substance allergy status
CPT/HCPCS: 99285; 96374; 96375 ×2; 70450; 71046; 80053; 82962; 83735; 84443; 84484; 85025; 93005

== ENCOUNTER → 2024-11-23 13:42 | Outpatient (REF) | payer MEDICARE, SELFPAY | LOC: WDC 13:42 | PROVIDERS: ATTENDING PHYSICIAN Nurse Practitioner Family | DX: Z12.31 Encounter for screening mammogram for malignant neoplasm of breast (principal) | CPT/HCPCS: 77063; 77067 ==